=== PATIENT | female | born 1985 | race Caucasian/White ===

== ENCOUNTER 2016-10-15 18:58 | Emergency (ER) | payer SELFPAY | END 2016-10-15 21:05 | disposition home or self-care (01) | LOC: D.ER 18:58 | DX: M54.16 Radiculopathy, lumbar region (principal); V49.9XXA Car occupant (driver) (passenger) injured in unspecified traffic accident, initial encounter; Y93.89 Activity, other specified; Y92.410 Unspecified street and highway as the place of occurrence of the external cause; F17.200 Nicotine dependence, unspecified, uncomplicated ==

== ENCOUNTER 2019-01-13 14:48 | Emergency (ER) | payer SELFPAY ==
[~2019-01-13] VITALS: Ht 157.5 cm; Wt 50.0 kg
[2019-01-13 14:52] VITALS: Ht 157.5 cm; Wt 50.0 kg
[2019-01-13] MEDS ORDERED: FER-IN-SOL DROP50 ML (14:53)
[2019-01-13] MEDS ORDERED: VOLTAREN75 MG PO (16:13)
[2019-01-13] MEDS ORDERED: BACTRIM 400-801 TAB PO (16:13)
[2019-01-13 16:37] VITALS: BP 112/79
== END 2019-01-13 16:53 | disposition home or self-care (01) ==
LOC: D.ER 14:48
DX: S61.011A Laceration without foreign body of right thumb without damage to nail, initial encounter (principal); W26.8XXA Contact with other sharp object(s), not elsewhere classified, initial encounter; Y93.89 Activity, other specified; Y92.89 Other specified places as the place of occurrence of the external cause

== ENCOUNTER 2019-01-25 20:07 | Emergency (ER) | payer SELFPAY ==
[~2019-01-25] VITALS: Ht 157.5 cm; Wt 50.0 kg
[~2019-01-25 20:07] MED LIST: BACTRIM 400-801 TAB PO; FER-IN-SOL DROP50 ML; VOLTAREN75 MG PO
[2019-01-25 20:21] VITALS: Ht 157.5 cm; Wt 50.0 kg
[2019-01-25 21:13] VITALS: BP 122/74
== END 2019-01-25 21:13 | disposition home or self-care (01) ==
LOC: D.ER 20:07
DX: S61.011D Laceration without foreign body of right thumb without damage to nail, subsequent encounter (principal); X58.XXXA Exposure to other specified factors, initial encounter; Z48.02 Encounter for removal of sutures

== ENCOUNTER 2019-03-13 08:19 | Emergency (ER) | payer SELFPAY ==
[~2019-03-13] VITALS: Ht 157.5 cm; Wt 50.0 kg
[2019-03-13 08:26] VITALS: Ht 157.5 cm; Wt 50.0 kg
[2019-03-13] MEDS ORDERED: FOLATE0.4 MG PO (08:28)
[2019-03-13 09:03] VITALS: BP 118/76
== END 2019-03-13 09:10 | disposition home or self-care (01) ==
LOC: D.ER 08:19
DX: S30.814A Abrasion of vagina and vulva, initial encounter (principal); W01.0XXA Fall on same level from slipping, tripping and stumbling without subsequent striking against object, initial encounter; Y93.E1 Activity, personal bathing and showering; F17.210 Nicotine dependence, cigarettes, uncomplicated; D57.1 Sickle-cell disease without crisis